=== PATIENT | female | born 1970 | race Caucasian/White ===

== ENCOUNTER 2017-04-12 20:26 | Emergency (ER) | payer BC | END 2017-04-12 22:10 | disposition home or self-care (01) | LOC: ER1 20:26 | DX: M54.2 Cervicalgia (principal); M25.511 Pain in right shoulder; Z87.39 Personal history of other diseases of the musculoskeletal system and connective tissue | CPT/HCPCS: 99283 ==

== ENCOUNTER 2020-08-21 13:21 | Emergency (ER) | payer BC ==
[~2020-08-21 13:21] MED LIST: NORCO 5-325 TA1 EACH PO
[2020-08-21 14:54] LABS: HEMOGLOBIN 16.6 gm/dl (12.3-15.3); RED BLOOD COUNT 5.2 M/UL (4.00-5.10); WHITE BLOOD COUNT 4.9 K/UL (4.5-11.0)
[2020-08-21 15:11] LABS: BUN/CREATININE RATIO 14 (0-10)
[2020-08-21] MEDS ORDERED: AZITHROMYCIN250 MG PO (16:32)
[2020-08-21] MEDS ORDERED: DECADRON6 MG PO (16:32)
[2020-08-21] MEDS ORDERED: OMNICEF 300 MG300 MG PO (16:32)
== END 2020-08-21 21:15 | disposition home or self-care (01) ==
LOC: ER1 13:21
PROVIDERS: Emergency Medicine
DX: U07.1 COVID-19 (principal); J12.82 Pneumonia due to coronavirus disease 2019; F41.9 Anxiety disorder, unspecified; R03.0 Elevated blood-pressure reading, without diagnosis of hypertension; E11.9 Type 2 diabetes mellitus without complications
CPT/HCPCS: 36600; 71045; 80053; 82550; 82553; 82728; 82803; 83605; 83615; 83690; 84484; 84703; 85025; 85379; 87040; 96365; 96367; 99284; J0456; J0696; J7030; M0239

== ENCOUNTER 2021-09-06 20:40 | Emergency (ER) | payer BC ==
[~2021-09-06 20:40] MED LIST changes: +AZITHROMYCIN250 MG PO; +DECADRON6 MG PO; +OMNICEF 300 MG300 MG PO
[2021-09-07 00:13] LABS: BUN/CREATININE RATIO 19 (0-10)
[2021-09-07 00:18] LABS: HEMOGLOBIN 14.2 gm/dl (12.3-15.3); RED BLOOD COUNT 4.67 M/UL (4.00-5.10); WHITE BLOOD COUNT 6.9 K/UL (4.5-11.0)
== END 2021-09-07 03:00 | disposition left against medical advice (07) ==
LOC: ER1 20:40
PROVIDERS: Physician Assistant
DX: R07.9 Chest pain, unspecified (principal); E78.5 Hyperlipidemia, unspecified; E11.9 Type 2 diabetes mellitus without complications
CPT/HCPCS: 71045; 80053; 82550; 82553; 83874; 84484; 85025; 93005; 99283